=== PATIENT | female | born 1990 | race Caucasian/White ===

== ENCOUNTER 2018-06-12 12:15 | Observation (INO) | payer OTHER ==
[2018-06-12] MEDS ORDERED: cefTRIAXone\\ROCEPHIN 2 GM VIAL ONE (12:44)
[2018-06-12 12:59] LABS: #Basophils 0.1 thou/uL (0.0-0.2); #Lymphocytes 1.7 thou/uL (1.20-3.40); #Monocytes 0.4 thou/uL (0.11-0.59); %Basophils 2.5 % (0.0-1.0); %Eosinophils 0.5 % (0.0-10.0); %Lymphocytes 31.8 % (21.0-51.0); %Monocytes 7.7 % (0.0-10.0); %Neutrophils 57.6 % (42.0-75.0); Hemoglobin 12.5 g/dL (12.0-16.0); Mean Corpuscular HGB CONC 34.8 g/dL (32.0-36.0); Mean Corpuscular Hemoglobin 29.1 pg (27.0-31.0); Mean Corpuscular Volume 83.5 fL (78.0-98.0); Mean Platelet Volume 7.1 fL (7.4-10.4); Platelet Count 287 thou/uL (130-400); RBC Distribution Width 11.1 % (11.5-14.5); Red Blood Cell (RBC) Count 4.29 mill/uL (4.20-5.40); White Blood Cell (WBC) Count 5.2 thou/uL (4.8-10.8)
[2018-06-12 13:15] LABS: ALT (SGPT) 10 U/L (8-55); AST (SGOT) 12 U/L (5-34); Albumin 3.7 g/dL (3.5-5.0); Alkaline Phosphatase 65 U/L (40-150); Anion Gap 14 mmol/L (10-20); BUN (Urea Nitrogen) 8 mg/dL (7.0-18.7); Bilirubin, Total 0.6 mg/dL (0.2-1.2); Calc. Creatinine Clearance 0 mL/min (70-130); Calcium 9.6 mg/dL (7.8-10.44); Carbon Dioxide 25 mmol/L (22-29); Chloride 104 mmol/L (98-107); Estimated GFR-MDRD Greater than 90; Globulin 3.5 g/dL (2.4-3.5); Glucose 86 mg/dL (70-105); Potassium 3.6 mmol/L (3.5-5.1); Protein, Total 7.2 g/dL (6.0-8.3); Sodium 139 mmol/L (136-145)
--- NOTE | 2018-06-12 13:35 | RAD ---
CHEST 2 VIEWS: HISTORY: Cough. Chest pain. FINDINGS: No comparison. Cardiac silhouette and pulmonary vasculature are unremarkable. Mediastinum is midlin e. Ill-defined patchy infiltrate projects over the left posterior lung base, not completely obscurin g the hemidiaphragm. Right lung is clear. No pleural fluid or pneumothorax. IMPRESSION: Left lower lobe infiltrate. Clinical correlation regarding other signs and symptoms of left lower lo be pneumonitis is required. POS: [facility]
[2018-06-12] MEDS ORDERED: Sodium Chloride 0.9% 1,000 ML IV SCH ×2 (16:00→16:45)
[2018-06-12] MEDS ORDERED: Guaifenesin DM 100-10/5 ML UDCUP PO PRN (16:35)
[2018-06-12] MEDS ORDERED: Acetaminophen 325 MG TAB PO PRN (16:35)
[2018-06-12 16:39] VITALS: BMI 22.1
[2018-06-12 17:10] LABS: Pregnancy Test - Urine (BHCG) Negative (Negative); Pregu Control Background? CLEAR/WHITE (CLR/WHITE); Pregu Control Bar Appear? YES (CONTROL BAR); Specific Gravity 1.007 (1.002-1.036)
[2018-06-12] MEDS ORDERED: Ibuprofen 600 MG TAB PO SCH (17:15)
--- NOTE | 2018-06-12 18:11 | CT ---
CT CHEST WITHOUT CONTRAST: 06/12/18 Multiple axial tomograms obtained through the chest without IV enhancement. INDICATION: Pleuritic chest pain and cough. Question empyema. Correlation made to chest film earlier today which showed left lower lobe opacity. FINDINGS: There is left lower lobe infiltrate consistent with inflammatory pneumonia. There is associated stran ding and atelectasis associated with this infiltrate which has somewhat of a reticular nodular compon ent along with areas of consolidation and linear atelectasis. There is no evidence of loculated fluid or empyema. There are early changes in the right lung base which have a similar micronodular reticular appearance indicating bibasilar involvement. Upper lung guillermo are clear. Images through the upper abdomen unremarkable. IMPRESSION: Bibasilar infiltrates, more pronounced in the left lung base as discussed above. Close followup recom mended. Infectious pneumonia should be considered, possible atypical etiology given the reticulonodul ar pattern. POS: [facility]
[2018-06-12 19:19] LABS: Legionella Urinary Ag Negative (Negative); Strep pneumo Urine Ag NEGATIVE (NEGATIVE)
--- NOTE | 2018-06-12 19:40 | HP ---
REASON FOR ADMISSION: Left lung pneumonia, failed outpatient antibiotics. HISTORY OF PRESENTING ILLNESS: The patient gives history of having been diagnosed with pneumonia 4 d ays back. She had gone to see her primary care physician, Dr. Dawson. She was placed on Zithromax and amoxicillin. She was told in 3 days if she did not get better to call their office or go to ER. They went to [facility] ER as she was not feeling good. She has pleuritic chest pain on deep breathing, especially the left lower ribcage area. She has had off and on fever as well. The p atient got concerned, hence went to [facility] ER from where she has been transferred here . No palpitations or PND or orthopnea. PAST MEDICAL AND SURGICAL HISTORY: Allergic bronchitis. CURRENT MEDICATIONS: The patient is on Zithromax and amoxicillin. Zyrtec p.r.n. for allergies. ALLERGIES: To TORADOL. PERSONAL HISTORY: Does not abuse alcohol or drugs. No history of smoking. FAMILY HISTORY: Both parents are healthy. CODE STATUS: FULL. Power of real estate attorney is her , who is also a dentist. REVIEW OF SYSTEMS: The following complete review of systems was negative, unless otherwise mentioned in the HPI or below: Constitutional: Weight loss or gain, ability to conduct usual activities. Skin: Rash, itching. Eyes: Double vision, pain. ENT/Mouth: Nose bleeding, neck stiffness, pain, tenderness. Cardiovascular: Palpitations, dyspnea on exertion, orthopnea. Respiratory: Shortness of breath, wheezing, cough, hemoptysis, fever or night sweats. Gastrointestinal: Poor appetite, abdominal pain, heartburn, nausea, vomiting, constipation, or diarr hea. Genitourinary: Urgency, frequency, dysuria, nocturia. Musculoskeletal: Pain, swelling. Neurologic/Psychiatric: Anxiety, depression. Allergy/Immunologic: Skin rash, bleeding tendency. PHYSICAL EXAMINATION: GENERAL: The patient is a 27-year-old female who is currently not in any acute distress. VITAL SIGNS: Blood pressure 101/63, pulse 96 per minute, respiratory rate is 18 per minute, temperat ure 97.8 degrees Fahrenheit, saturating 96% on room air. NECK: Supple, no elevated JVD. HEENT: Extraocular muscles intact. Pupils reacting to light. Oral cavity, mucous membranes are michi st. No exudates or congestion. CARDIOVASCULAR: S1, S2 heard. Regular rhythm. RESPIRATORY: Air entry 1+ bilaterally. No rales or rhonchi. ABDOMEN: Soft, bowel sounds heard. No tenderness, rigidity, or guarding. EXTREMITIES: No peripheral edema or calf tenderness. VASCULAR SYSTEM: Peripheral pulses 1+ bilateral, no ischemic ulcerations or gangrene. CENTRAL NERVOUS SYSTEM: No gross focal deficits noted. Patient is alert, awake, oriented well. PSYCHIATRIC: The patient's mood is euthymic. No hallucinations or delusions. LABORATORY AND X-RAY FINDINGS: White count of 5, H&H 12.1 and 35, platelet count is 287, MCV is 83 w ith 57% neutrophils. Electrolytes stable. BUN 8, creatinine 0.7, serum glucose 86. Liver enzymes w ithin normal limits. Albumin is 3.7. Urine test is negative. CT chest without contrast d one showed bibasilar infiltrates, more pronounced in the left lung base. Respiratory culture obtaine d in the evening is growing many gram-positive cocci in clusters and chains. CLINICAL IMPRESSION AND PLAN: The patient will be under observation on medical floor for pneumonia. She will be on Levaquin 500 mg IV daily, DuoNebs q.6 hourly, Motrin 400 mg p.o. three times daily fo r pleuritic chest pain. Normal saline 70 mL per hour for a total of 1 liter, Protonix 40 mg daily. We will obtain a viral PCR panel and urine strep and legionella antigen as well. Blood cultures have been obtained in the ER. If the patient does not have any fever and her pleuritic chest pain gets b balaji, she can be discharged in the morning. I have given complete updates to the patient and her hu summer who is also a dentist at bedside.
[2018-06-12] MEDS: MONTELUKAST 10 MG TAB PO SCH (20:52)
[2018-06-12] MEDS: Ibuprofen 200 MG TAB PO SCH (20:53)
[2018-06-12] MEDS ORDERED: Montelukast Sodium 10 mg Tablet PO SCH (21:00)
[2018-06-12] MEDS: Albuterol Sulfate 1.25 MG/3 ML NEB NEB SCH (21:05)
[2018-06-13 04:38] LABS: #Basophils 0.1 thou/uL (0.0-0.2); #Eosinphils 0.1 thou/uL (0.0-0.7); #Lymphocytes 1.7 thou/uL (1.20-3.40); #Monocytes 0.5 thou/uL (0.11-0.59); #Neutrophils 1.7 thou/uL (1.40-6.50); %Eosinophils 1.9 % (0.0-10.0); %Lymphocytes 42.1 % (21.0-51.0); %Monocytes 12.1 % (0.0-10.0); %Neutrophils 41.9 % (42.0-75.0); Hemoglobin 11.7 g/dL (12.0-16.0); Mean Corpuscular HGB CONC 33.3 g/dL (32.0-36.0); Mean Corpuscular Hemoglobin 29.8 pg (27.0-31.0); Mean Corpuscular Volume 89.5 fL (78.0-98.0); Mean Platelet Volume 6.8 fL (7.4-10.4); Platelet Count 287 thou/uL (130-400); RBC Distribution Width 12.1 % (11.5-14.5); Red Blood Cell (RBC) Count 3.95 mill/uL (4.20-5.40); White Blood Cell (WBC) Count 4.1 thou/uL (4.8-10.8)
[2018-06-13 04:46] LABS: Anion Gap 11 mmol/L (10-20); BUN (Urea Nitrogen) 7 mg/dL (7.0-18.7); Calc. Creatinine Clearance 118 mL/min (70-130); Calcium 9.1 mg/dL (7.8-10.44); Carbon Dioxide 23 mmol/L (22-29); Chloride 108 mmol/L (98-107); Estimated GFR-MDRD Greater than 90; Glucose 91 mg/dL (70-105); Potassium 3.9 mmol/L (3.5-5.1); Sodium 138 mmol/L (136-145)
[2018-06-13] MEDS: Albuterol Sulfate 1.25 MG/3 ML NEB NEB SCH ×4 (08:00→18:02)
[2018-06-13] MEDS: Ibuprofen 200 MG TAB PO SCH ×2 (08:47→14:10)
[2018-06-13] MEDS ORDERED: Prevnar 13-Val Conj/PF 0.5 ML SYRINGE IM ONE (09:00)
[2018-06-13] MEDS: Levofloxacin 750 mg/D5W 500 MG in Premix Bag 1 BAG IVPB SCH (14:10)
--- NOTE | 2018-06-13 16:21 | PDOC.PN ---
- Subjective Encounter Start Date: 06/13/18 Encounter Start Time: 16:20 Subjective: FEELS BETTER BUT STILL HAS SOME SOB -: coughing.no fever - Objective Resuscitation Status: Resuscitation Status FULL:Full Resuscitation MAR Reviewed: Yes Vital Signs & Weight: Vital Signs (12 hours) Temp Pulse Resp BP Pulse Ox 06/13/18 14:31 74 16 95 06/13/18 10:56 72 16 96 06/13/18 08:00 72 16 96 06/13/18 07:57 98.1 F 84 18 102/63 97 Weight Weight 121 lb 7 oz I&O: 06/12/18 06/13/18 06/14/18 06:59 06:59 06:59 Intake Total 1850 Balance 1850 Result Diagrams: 06/13/18 04:07 06/13/18 04:07 Additional Labs: Microbiology 06/12/18 17:32 Nasopharyngeal swab Respiratory Virus Panel (PCR) - Final 06/12/18 17:32 Sputum Respiratory Culture - Preliminary 06/12/18 12:49 Venous blood - Left Arm Blood Culture - Preliminary Specimen has been received and culture in progress. No Growth to date. 06/12/18 12:40 Venous blood - Right Arm Blood Culture - Preliminary Specimen has been received and culture in progress. No Growth to date. Phys Exam - Physical Examination Constitutional: NAD HEENT: PERRLA, moist MMs, sclera anicteric, oral pharynx no lesions Neck: no nodes, no JVD, supple, full ROM Respiratory: no wheezing, no rales, no rhonchi, clear to auscultation bilateral Cardiovascular: RRR, no significant murmur, no rub Gastrointestinal: soft, non-tender, no distention, positive bowel sounds Musculoskeletal: no edema, pulses present Neurological: non-focal, normal sensation, moves all 4 limbs Psychiatric: normal affect, A&O x 3 Skin: no rash Dx/Plan (1) Atypical pneumonia Code(s): J18.9 - PNEUMONIA, UNSPECIFIED ORGANISM Status: Acute (2) Dyspnea Code(s): R06.00 - DYSPNEA, UNSPECIFIED Status: Acute - Plan out of bed/ambulate, DVT proph w/SCDs cont empiric IV ABx.symptomatic care -: clincally better -: likley home in next 24 hours -: OP f/u w repeat CT in 3-4 months to r/o other causes for atypical PNA -: Cx negative so far. will follow. * . Review of Systems - Review of Systems Constitutional: weakness, malaise. negative: fever, chills, sweats, other ENT: negative: Ear Pain, Ear Discharge, Nose Pain, Nose Discharge, Nose Congestion, Mouth Pain, Mouth Swelling, Throat Pain, Throat Swelling, Other Respiratory: Cough. negative: Dry, Shortness of Breath, Hemoptysis, SOB with Excertion, Pleuritic Pain, Sputum, Wheezing Cardiovascular: negative: chest pain, palpitations, orthopnea, paroxysmal nocturnal dyspnea, edema, light headedness, other Gastrointestinal: negative: Nausea, Vomiting, Abdominal Pain, Diarrhea, Constipation, Melena, Hematochezia, Other Genitourinary: negative: Dysuria, Frequency, Incontinence, Hematuria, Retention , Other Musculoskeletal: negative: Neck Pain, Shoulder Pain, Arm Pain, Back Pain, Hand Pain, Leg Pain, Foot Pain, Other Skin: negative: Rash, Lesions, Mendoza, Bruising, Other Neurological: negative: Weakness, Numbness, Incoordination, Change in Speech, Confusion, Seizures, Other - Medications/Allergies Allergies/Adverse Reactions: Allergies Allergy/AdvReac Type Severity Reaction Status Date / Time ketorolac [From Toradol] Allergy Intermediate Verified 06/12/18 17:25 Medications: Current Medications Acetaminophen (Tylenol) 650 mg PO Q4H PRN PRN Reason: Headache/Fever/Mild Pain (1-3) Albuterol Sulfate (Albuterol Sulfate) 1.25 mg NEB QID-RT [facility] Last Admin: 06/13/18 14:31 Dose: 1.25 mg Guaifenesin/Dextromethorphan (Robitussin Dm) 15 ml PO Q4H PRN PRN Reason: Cough Last Admin: 06/13/18 08:47 Dose: 15 ml Levofloxacin 500 mg/ Device 100 mls @ 100 mls/hr IVPB Q24HR@1400 [facility] Last Admin: 06/13/18 14:10 Dose: 100 mls Ibuprofen (Motrin) 400 mg PO TID [facility] Last Admin: 06/13/18 14:10 Dose: 400 mg Montelukast Sodium (Singulair) 10 mg PO QPM [facility] Pantoprazole Sodium (Protonix) 40 mg PO DAILY [facility] Last Admin: 06/13/18 08:47 Dose: 40 mg Montelukast 10 Mg (Tab) 1 each PO HS [facility] Last Admin: 06/12/18 20:52 Dose: 1 each
[2018-06-13] MEDS: guaiFENesin ER 600 MG TAB PO SCH (20:03)
[2018-06-13] MEDS: MONTELUKAST 10 MG TAB PO SCH (20:04)
[2018-06-13] MEDS ORDERED: Montelukast Sodium 10 mg Tablet PO SCH (21:00)
[2018-06-14] MEDS: Albuterol Sulfate 1.25 MG/3 ML NEB NEB SCH ×2 (07:56→11:55)
[2018-06-14] MEDS: guaiFENesin ER 600 MG TAB PO SCH (08:26)
[2018-06-14] MEDS ORDERED: Sodium Chloride 0.9% 1,000 ML IV SCH (08:45)
[2018-06-14 11:09] VITALS: BP 106/56; TEMP 98.4
[2018-06-14] MEDS: Levofloxacin 750 mg/D5W 500 MG in Premix Bag 1 BAG IVPB SCH (12:25)
--- NOTE | 2018-06-14 19:57 | DIS ---
DATE OF ADMISSION: 06/12/2018 DATE OF DISCHARGE: 06/14/2018 DISCHARGE DIAGNOSES: 1. Atypical pneumonia. 2. Asthmatic bronchitis. DISCHARGE MEDICATIONS: Levofloxacin 500 mg p.o. daily for 7 more days, Florastor 250 mg daily for 10 days, Mucinex 600 mg p.o. b.i.d. for 5 days. Resume home medication of Singulair 10 mg daily. PROCEDURES DONE IN THE HOSPITAL: CT scan of the chest which shows atypical bilateral reticular nodul ar opacities consistent with atypical pneumonia, more pronounced in the left lung base. HISTORY OF PRESENT ILLNESS: Ms. Cantu is a 27-year-old healthy female who presented to the emerge ncy room with complaints of fever, cough, and shortness of breath. She has failed outpatient oral an tibiotic therapy. Upon presentation, she was hemodynamically stable. She underwent a CT scan of the chest which showed bibasilar infiltrates and she was started on empiric IV antibiotics. The respira tory viral panel was done which was unremarkable. She was given IV fluids. Cultures were obtained. Please see admission history and physical for further detail. HOSPITAL COURSE: The patient had quick improvement in her symptoms with IV antibiotics. Blood cultu re and viral culture and respiratory viral panel by was negative. She was treated empirically with levofloxacin. Because of atypical picture in the CT scan, I have recommended a follow up with a repeat CT scan in about 3 months with a primary care physician. PHYSICAL EXAMINATION: She was seen and examined prior to discharge this morning and her physical exa m shows; VITAL SIGNS: Temperature 98.4, pulse 113, respirations 16, saturating 98% on room air. GENERAL: No acute distress. CHEST: Clear to auscultation bilaterally. Rate and rhythm is regular. Discharge plan was discussed with the patient and her present at the bedside who verbalized u nderstanding. Prescriptions were provided.
== END 2018-06-14 14:47 | disposition home or self-care (01) ==
LOC: SCSER 12:15 → ONC 14:32 → INTOOBSV 14:32
PROVIDERS: ADMIT Internal Medicine; ATTEND Internal Medicine
DX: J18.9 Pneumonia, unspecified organism (principal); J45.909 Unspecified asthma, uncomplicated; Z79.2 Long term (current) use of antibiotics; Z79.899 Other long term (current) drug therapy; Z88.6 Allergy status to analgesic agent
CPT/HCPCS: 36415; 71046; 71250; 80048; 80053; 81025; 83605; 85025; 87040; 87070; 87205; 87633; 87899; 94640; 96361; 96365; 96366; 96367; G0378; J0696; J1956

== ENCOUNTER 2018-06-25 08:40 | Outpatient (CLI) | payer OTHER ==
--- NOTE | 2018-06-25 09:48 | RAD ---
TWO VIEW CHEST: Comparison: 06-12-18 Indication: Atypical pneumonia. FINDINGS: Interval near complete resolution of left basilar density. Minimal residua remains. Chest is otherwis e similar. IMPRESSION: Near complete resolution of prior left basilar pneumonia. POS: [facility]
== END 2018-06-25 08:41 | disposition home or self-care (01) ==
LOC: SCSRAD 08:40
PROVIDERS: ATTEND Family Medicine
DX: J18.9 Pneumonia, unspecified organism (principal)
CPT/HCPCS: 71046

== ENCOUNTER 2018-11-18 16:21 | Outpatient (CLI) | payer BC ==
--- NOTE | 2018-11-18 17:44 | RAD ---
TWO VIEWS CHEST: Date: 11-18-18 Provided Clinical History: Acute bronchitis. FINDINGS: Comparison 06-25-18. Cardiac and mediastinal silhouette is within normal limits. No focal consolidation, pleural fluid or pneumothorax is apparent. IMPRESSION: No evidence for an acute cardiopulmonary process. POS: [facility]
== END 2018-11-18 16:22 | disposition home or self-care (01) ==
LOC: SCSRAD 16:21
PROVIDERS: ATTEND Family Medicine
DX: J20.9 Acute bronchitis, unspecified (principal)
CPT/HCPCS: 71046